=== PATIENT | female | born 1965 | race Caucasian/White ===

== ENCOUNTER 2020-08-27 19:46 | Emergency (ER) | payer SELFPAY ==
[2020-08-27 19:46] VITALS: BP 157/91; PULSE 86; RESP 16; O2SAT 97
[2020-08-27 20:36] LABS: Basophils Percent Auto 0.4 % (0.2-1.2); Eosinophils Absolute Auto 0.1 K/mm3 (0-0.3); Eosinophils Percent Auto 2.5 % (0-4.4); Hematocrit 33.1 % (37.0-47.0); Hemoglobin 10.2 g/dL (12.0-15.0); Immature Granulocyte Absolute 0.01 K/mm3 (0.00-0.031); Immature Granulocyte Percent A 0.2 % (0-0.5); Lymphocytes Percent Auto 24.7 % (18.3-44.2); Mean Corpuscular HGB Conc 30.8 g/dl (32-36); Mean Corpuscular Hemoglobin 26.7 pg (26-34); Mean Corpuscular Volume 86.6 fl (80-100); Mean Platelet Volume 10.9 fl (7.4-10.4); Monocytes Absolute Auto 0.4 K/mm3 (0.1-0.6); Monocytes Percent Auto 7.1 % (2.6-8.5); Neutrophils Absolute Auto 3.7 K/mm3 (1.3-6.7); Neutrophils Percent Auto 65.1 % (45.5-73.1); Platelet Count Result 302 k/mm3 (150-375); Red Blood Count 3.82 M/mm3 (4.2-5.4); Red Cell Distribution Width 15.9 % (11.5-14.5); White Blood Count 5.7 K/mm3 (4.5-10.0)
--- NOTE | 2020-08-27 20:40 | ED.PSYCH ---
HPI - Psych General Chief Complaint: Psychiatric Symptoms Stated Complaint: SI History of Present Illness HPI Narrative: 55 yo female brought in by EMS for suicidal ideations. She reports that she has been dealing with several personal and financial setbacks recently. Today she was pulled over and given a ticket. At that time the she told the uniform patrol police officer that she should just kill herself. She denies actually being suicidal or having any history of depression. Review of Systems Review of Systems: All systems reviewed & are unremarkable except as noted in HPI and below Constitutional: Constitutional: Denies chills and Denies fever(s) Eyes: Eyes: Reports no additional eye complaints Cardiovascular: Cardiovascular: Denies chest pain Respiratory: Respiratory: Denies dyspnea Gastrointestinal: Gastrointestinal: Denies abdominal pain Genitourinary: Genitourinary: Reports no additional female genitourinary complaints Psychiatric: Psychiatric: Denies depression, Denies homicidal ideation and Denies suicidal ideation [facility] Social History Social History Substance use type: does not use Gender identity (if verbalized by the patient): Female Exam Const: General: no acute distress and alert Nutritional Appearance: obese Orientation/consciousness: patient oriented x3 HENMT: Head: normal to inspection Neck: Neck: normal visual inspection Resp: Effort & Inspection: normal respiratory effort Auscultation: clear to auscultation bilaterally Cardio: Rate: regular rate Rhythm: regular rhythm Skin: General skin exam: normal color Neuro: General: patient oriented x3, moves all extremities, no focal motor deficits and CN's II-XI intact bilaterally Speech: normal speech Gait exam (Neuro): Normal gait present Extrem: General: normal to inspection and no edema Psych: Affect: Sad affect present (tearful) Course Vital Signs Vital signs: Vital Signs Pulse Rate 86 08/27/20 19:46 Respiratory Rate 16 08/27/20 19:46 Blood Pressure 157/91 H 08/27/20 19:46 Pulse Oximetry 97 08/27/20 19:46 Pulse Rate 88 08/27/20 23:31 Respiratory Rate 18 08/27/20 23:31 Blood Pressure 157/88 H 08/27/20 23:31 Pulse Oximetry 100 08/27/20 23:31 MDM - Psych MDM Narrative Medical decision making narrative: I was trying to place as little burden on her as possible and said that if she could find someone to stay with her for the night I would let her, but as upset as she was I did not feel good about letting her go alone. She was not agreeable. I will plan to have her evaluated by crisis. Crisis has seen her and believe that she is okay for discharge with a safety plan. I think this is appropriate. Differential Diagnosis Differential diagnosis: Likely suicidal ideation, depression and acute anxiety Medical Records Attestation: I reviewed the patient's medical records. Lab Data Attestation: I reviewed the patient's lab results. Result diagrams: 08/27/20 20:29 08/27/20 20:29 Labs: Lab Results 08/27/20 08/27/20 08/27/20 Range/Units 20:26 20:29 20:29 WBC 5.7 (4.5-10.0) K/mm3 RBC 3.82 L (4.2-5.4) M/mm3 Hgb 10.2 L (12.0-15.0) g/dL Hct 33.1 L (37.0-47.0) % MCV 86.6 (80-100) fl MCH 26.7 (26-34) pg MCHC 30.8 L (32-36) g/dl RDW 15.9 H (11.5-14.5) % Plt Count 302 (150-375) k/mm3 MPV 10.9 H (7.4-10.4) fl Immature Gran % (Auto) 0.2 (0-0.5) % Neut % (Auto) 65.1 (45.5-73.1) % Lymph % (Auto) 24.7 (18.3-44.2) % Chase % (Auto) 7.1 (2.6-8.5) % Eos % (Auto) 2.5 (0-4.4) % Baso % (Auto) 0.4 (0.2-1.2) % Lymph # (Auto) 1.40 (0.9-3.2) K/mm3 Chase # (Auto) 0.4 (0.1-0.6) K/mm3 Eos # (Auto) 0.1 (0-0.3) K/mm3 Baso # (Auto) 0.0 (0.0-0.1) K/mm3 Abs Immat Gran (auto) 0.01 (0.00-0.031) K/mm3 Absolute Neuts (auto) 3.7 (1.3-6.7) K/mm3 Absolute Nucle
[2020-08-27 20:45] LABS: Ethanol < 10 mg/dL (<10)
[2020-08-27 20:46] LABS: Add Urine Microscopic? YES; Alanine Aminotransferase 28 U/L (4-35); Albumin Level 4.2 g/dL (3.5-5.1); Alkaline Phosphatase 90 U/L (38-126); Anion Gap 7 mmol/L (8-16); Appearance Urine Clear (Clear); Aspartate Amino Transferase 26 U/L (14-36); Bacteria Urine Trace /hpf; Bilirubin Urine Negative (Negative); Bilirubin,Total < 0.1 mg/dL (0.2-1.3); Blood Urea Nitrogen 19 mg/dL (7-17); Calcium 8.9 mg/dL (8.4-10.2); Carbon Dioxide 26 mmol/L (22-30); Chloride 108 mmol/L (98-107); Color Urine Yellow (Yellow); Estimated CRCL calculation 90 ml/min; Estimated Glomerular Filt Rate > 60; Glucose 109 mg/dL (65-105); Glucose Urine UA Negative (Negative); Ketones Urine Negative (Negative); Leukocyte Esterase Ur 1+ LEU/UL (Negative); Mucus Urine Few /lpf; Nitrate Urine Negative (Negative); Protein Urine 1+ mg/dL (Negative); RBC Urine 0-2 /hpf (0-2); Sodium 141 mmol/L (137-145); Squamous Epithelial Cell Urine Moderate /hpf (Few); Urobilinogen Urine Negative mg/dL (<2.0)
[2020-08-27 20:50] LABS: Specific Grav Ur 1.033 (1.001-1.035)
[2020-08-27 20:51] LABS: Blood Urine Negative (Negative)
[2020-08-27 20:56] LABS: Amphetamine Screen Urine Negative (Negative); Barbiturate Screen Urine Negative (Negative); Benzodiazepines Screen Urine Negative (Negative); Cannabinoid Screen Urine Negative (Negative); Cocaine Screen Urine Negative (Negative); Methadone Screen Urine Negative (Negative); Opiate Screen Urine Negative (Negative); Phencyclidine Screen Urine Negative (Negative)
[2020-08-27 23:31] VITALS: BP 157/88; PULSE 88; RESP 18; O2SAT 100
== END 2020-08-27 23:32 | disposition home or self-care (01) ==
PROVIDERS: Emergency Provider Emergency Medicine
DX: F43.0 Acute stress reaction (principal)
CPT/HCPCS: 36415; 80053; 80307; 81001; 81025; 84443; 85025; 87086; 87088; 99284